=== PATIENT | male | born 1955 | race Caucasian/White ===

== ENCOUNTER 2018-07-20 15:21 | Emergency (ER) | payer OTHER ==
[2018-07-20 15:31] VITALS: BP 147/66
--- NOTE | 2018-07-20 15:45 | ER Document Report ---
ED Medical Screen (RME) - General Chief Complaint: Psych Problem Stated Complaint: SUBSTANCE ABUSE Time Seen by Provider: 07/20/18 15:41 TRAVEL OUTSIDE OF THE [place] IN LAST 30 DAYS: No - HPI Notes: 07/20/18 15:44 Patient is a 63-year-old male who presents with requesting help with detoxing. Patient last use this morning. Patient states that currently he feels well and has been able to eat and drink without difficulty. He is urinating normally and having normal bowel movements. Patient states that he did have a history of drug abuse in the past, but was sober for years before he relapsed about a month ago. Patient states that he started with alcohol and then he progressed to snorting OxyContin. He has no SI or HI. Denies drug allergies. Denies BALDERAS, fever, neck pain, URI, CP, SOB, Abd pain, dysuria, back pain, or rash. I have treated and performed a rapid initial assessment of this patient. A comprehensive ED assessment and evaluation of the patient, analysis of test results and completion of medical decision making process will be conducted by additional ED providers. PHYSICAL EXAMINATION: GENERAL: Well-appearing, well-nourished and in no acute distress. A&Ox4. Answers questions appropriately. LUNGS: Breath sounds clear to auscultation bilaterally and equal. No wheezes rales or rhonchi. HEART: Regular rate and rhythm without murmurs, rubs, gallops. Extremities: No cyanosis, clubbing, or edema b/l. NEUROLOGICAL: Normal speech, normal gait. Cranial nerves grossly intact. PSYCH: Normal mood, normal affect. - Related Data Allergies/Adverse Reactions: No Known Allergies Allergy (Verified 07/20/18 15:34) Physical Exam - Vital signs Vitals: Temp Pulse Resp BP Pulse Ox 98.2 F 72 18 147/66 H 96 07/20/18 15:24 07/20/18 15:24 07/20/18 15:24 07/20/18 15:24 07/20/18 15:24 Course - Vital Signs Vital signs: Temp Pulse Resp BP Pulse Ox 98.2 F 72 18 147/66 H 96 07/20/18 15:24 07/20/18 15:24 07/20/18 15:24 07/20/18 15:24 07/20/18 15:24
--- NOTE | 2018-07-20 16:29 | ER Document Report ---
HPI - HPI Time Seen by Provider: 07/20/18 15:41 Pain Level: 1 Notes: Patient is a 63-year-old male who presents with requesting help with detoxing. Patient's last use was this morning. Patient states that currently he feels well and has been able to eat and drink without difficulty. He is urinating normally and having normal bowel movements. Patient states that he did have a history of drug abuse in the past, but was sober for years before he relapsed about a month ago. Patient states that he started with alcohol and then he progressed to snorting OxyContin. He has no SI or HI. No IV drug use. Denies drug allergies. Denies any headache, fever, neck pain, URI, sore throat, chest pain, palpitations, syncope, cough, shortness of breath, wheeze, dyspnea, abdominal pain, nausea/vomiting/diarrhea, urinary retention, dysuria, hematuria, loss of control of bowel or bladder, numbness/tingling, saddle anesthesia, muscle paralysis/weakness, or rash. - ROS Systems Reviewed and Negative: Yes All other systems reviewed and negative - DERM Skin Color: Normal Past Medical History - Social History Smoking Status: Current Every Day Smoker Frequency of alcohol use: Heavy Drug Abuse: Prescription drugs Family History: Reviewed & Not Pertinent Patient has suicidal ideation: No Patient has homicidal ideation: No - Past Medical History Cardiac Medical History: Reports: Hx Hypertension Renal/ Medical History: Denies: Hx Peritoneal Dialysis Psychiatric Medical History: Reports: Hx Depression Past Surgical History: Reports: Hx Abdominal Surgery - hernia repair, Hx Orthopedic Surgery - left rotator cuff,ankle Vertical Provider Document - CONSTITUTIONAL Agree With Documented VS: Yes Notes: PHYSICAL EXAMINATION: GENERAL: Well-appearing, well-nourished and in no acute distress. A&Ox4. Answers questions appropriately. HEAD: Atraumatic, normocephalic. Non-tender. EYES: Pupils equal round and reactive to light, extraocular movements intact, sclera anicteric, conjunctiva are normal. No nystagmus. vis dockery intact. ENT: EAC clear b/l. TM's intact b/l without erythema, fluid, or perforation. Nares patent and without discharge. oropharynx clear without exudates. No tonsilar hypertrophy or erythema. Moist mucous membranes. No sinus tenderness. NECK: Normal range of motion, supple without lymphadenopathy. No rigidity/meningismus. No midline tenderness. LUNGS: Breath sounds clear to auscultation bilaterally and equal. No wheezes rales or rhonchi. HEART: Regular rate and rhythm without murmurs, rubs, gallops. ABDOMEN: Soft, nontender, nondistended abdomen. No guarding, no rebound. Normal bowel sounds present. No CVA tenderness bilaterally. Musculoskeletal: Ext b/l: FROM to passive/active. Strength 5+/5. No deficits noted. No bony tenderness of extremities. Extremities: No cyanosis, clubbing, or edema b/l. Peripheral pulses 2+. Capillary refill less than 2 seconds. NEUROLOGICAL: NIH 0. GCS 15. Cranial nerves grossly intact. Normal speech, normal gait. Normal sensory, motor exams. Reflexes 2+ b/l. PSYCH: Normal mood, normal affect. SKIN: Warm, Dry, normal turgor, no rashes or lesions noted. - INFECTION CONTROL TRAVEL OUTSIDE OF THE [place] IN LAST 30 DAYS: No Course - Re-evaluation Re-evalutation: 07/20/18 16:39 Patient is an afebrile, well-hydrated, 63-year-old male with substance abuse for help with detox facilities. Vitals are acceptable without significant tachycardia, tachypnea, or hypoxia. PE is otherwise unremarkable for any focal neurological deficits. Patient does not appear to be in any acute withdrawal at this time. He is nontoxic-appearing is able to tolerate p.o. without difficulty. Cranial nerves are grossly intact with a NIH of 0 and GCS 15. Patient has been given resources and direction from our psychology team about calling [facility] to aid with placement. I did review with Dr. Leigh and we will place a clonidine patch today to help with any acute withdrawals. Low suspicion for any sepsis, meningitis, severe dehydration, respiratory compromise, acute intracranial process/pathology, acute abdomen, or other systemic emergent condition at this time. Patient is aware that condition can change from initial presentation and he needs to monitor symptoms closely and seek medical attention with any acute changes. Recheck with your PCM in 2 to 3 days. Return to the ED as needed otherwise as reviewed. Patient and spouse in agreement. [facility] will be meeting them at their house upon discharge. - Vital Signs Vital signs: Temp Pulse Resp BP Pulse Ox 98.2 F 72 18 147/66 H 96 07/20/18 15:24 07/20/18 15:24 07/20/18 15:24 07/20/18 15:24 07/20/18 15:24 Discharge - Discharge Clinical Impression: Desire for detoxification Condition: Stable Disposition: HOME, SELF-CARE Additional Instructions: You have been provided with detox/substance abuse resources and information. You are to call [facility] mobile crisis so that they can help you find placement. Get placed as soon as possible. Maintain adequate fluid and food intake Healthy diet Zofran as needed tylenol if needed Monitor for any worsening symptoms Make sure you are staying hydrated enough to urinate and have normal BM's Recheck with your PCM in 2-3 days Return to the ED with any worsening symptoms and/or development of fever, headache, chest pain, palpitations, syncope, shortness of breath, trouble breathing, abdominal pain, n/v/d, blood in stool/urine, weakness, or other worsening symptoms that are concerning to you. Prescriptions: Ondansetron [Zofran Odt 4 mg Tablet] 1 - 2 tab PO Q4H PRN #15 tab.rapdis PRN Reason: For Nausea/Vomiting Forms: Elevated Blood Pressure Referrals: [facility] [Provider Group] - 07/20/18
[2018-07-20] MEDS ORDERED: CLONIDINE 0.1 MG/24 HR PATCH.TDWK TD ONE (16:43)
[2018-07-20 18:25] LABS: URINE AMPHETAMINES SCREEN NEGATIVE; URINE BARBITURATES SCREEN NEGATIVE; URINE BENZODIAZEPINES SCREEN NEGATIVE; URINE COCAINE SCREEN NEGATIVE; URINE MARIJUANA (THC) SCREEN NEGATIVE; URINE METHADONE SCREEN NEGATIVE; URINE PHENCYCLIDINE SCREEN NEGATIVE
== END 2018-07-20 16:59 | disposition home or self-care (01) ==
LOC: ER 15:21
DX: F19.10 Other psychoactive substance abuse, uncomplicated (principal); F17.200 Nicotine dependence, unspecified, uncomplicated
CPT/HCPCS: 99284; 80307; J3490